=== PATIENT | female | born 1950 | race Caucasian/White ===

== ENCOUNTER 2021-09-23 06:12 | Day surgery (SDC) | payer MEDICARE ==
[2021-09-23] MEDS ORDERED: Lactated Ringers 1,000 ML IV SCH ×2 (07:00)
[2021-09-23] MEDS ORDERED: DIPRIVAN 200 MG/20 ML IV ONE ×2 (07:29→07:38)
[2021-09-23 08:18] VITALS: O2SAT 98
--- NOTE | 2021-09-23 08:33 | OP ---
SURGERY DATE/TIME: 09/23/2021 4650 PREOPERATIVE DIAGNOSIS: Screening exam. POSTOPERATIVE DIAGNOSIS: Normal colon. PROCEDURE: Colonoscopy. SURGEON: Dr. Molina. ANESTHESIA: MAC. Medications given by anesthesia department. HISTORY: The patient is a 71-year-old white female who presents now for her first screening colonoscopy. The patient reports that there have been no problems and she is here for screening. She has never had one previously. The patient was appraised of the risks of the procedure including the risk of perforation, phlebitis, untoward reaction to medication, bleeding and missed lesions. The patient verbalized her understanding and desired to have the procedure performed. DESCRIPTION OF PROCEDURE: The patient was given the medications by the anesthesia department. She had continuous pulse oximetry, ECG monitoring, intermittent blood pressure monitoring and tidal CO2 monitoring during the examination. She was placed in the left lateral decubitus position. A digital rectal examination was performed and revealed normal anal sphincter tone and no masses. The flexible Olympus pediatric colonoscope was used to intubate the rectum. A view of the colon was developed sequentially to the cecum. Upon insertion and withdrawal, including a retroflex view in the rectum, no mucosal lesions were encountered. The scope was removed from the patient who tolerated the procedure well and was sent back to OP recovery in good condition. The prep was noted to be fair to good.
[2021-09-23 08:58] VITALS: BP 144/84; PULSE 76
== END 2021-09-23 08:43 | disposition home or self-care (01) ==
LOC: SDC 06:12
PROVIDERS: ATTEND Family Medicine
DX: Z12.11 Encounter for screening for malignant neoplasm of colon (principal); E11.9 Type 2 diabetes mellitus without complications; Z79.899 Other long term (current) drug therapy
CPT/HCPCS: 82947; 99100; J2704

== ENCOUNTER 2023-07-03 05:35 | Day surgery (SDC) | payer MEDICARE ==
[2023-07-03] MEDS ORDERED: BETADINE 5% OPHTHALMIC 30 ML OP ONE (06:00)
[2023-07-03] MEDS ORDERED: cefUROXime sodium 0.005 GM in Sodium Chloride Flush 30 ML*** 0.5 ML IJ ONE (06:00)
[2023-07-03] MEDS ORDERED: TETRACAINE 0.5% STERI-UNIT SOL OP ONE ×2 (06:00)
[2023-07-03] MEDS ORDERED: Ak-Dilate OPHTHALMIC*** 1.065 ML, Cyclogyl 1% OPHTH SOL 1.065 ML, GATIFLOXACIN 0.5% OPH... OP ONE ×4 (06:00)
[2023-07-03] MEDS ORDERED: Lactated Ringers 1,000 ML IV SCH (06:00)
[2023-07-03] MEDS ORDERED: NON-FORMULARY ITEM OP ONE (06:00)
[2023-07-03] MEDS ORDERED: Lactated Ringers 1,000 ML IV ONE (06:12)
[2023-07-03 06:52] VITALS: RESP 18
[2023-07-03] MEDS ORDERED: Zofran 4 MG/2 ML VIAL IV PRN (07:30)
[2023-07-03] MEDS ORDERED: ACETAZOLAMIDE 250 MG TABLET PO ONE (07:30)
[2023-07-03] MEDS ORDERED: DIPRIVAN 200 MG/20 ML IV ONE ×2 (08:52→09:06)
[2023-07-03 09:17] VITALS: TEMP 97.7
[2023-07-03 09:23] VITALS: PULSE 85
[2023-07-03 09:29] VITALS: BP 130/72; O2SAT 95
[2023-07-03] MEDS ORDERED: Epinephrine Preservative Free 1 MG/ML ONE (14:52)
== END 2023-07-03 09:34 | disposition home or self-care (01) ==
LOC: SDC 05:35
PROVIDERS: ATTEND Ophthalmology
DX: H25.812 Combined forms of age-related cataract, left eye (principal); E11.9 Type 2 diabetes mellitus without complications
CPT/HCPCS: 82947; 99100; C1780; J0171; J2704; A9270-GY

== ENCOUNTER 2023-08-07 05:31 | Day surgery (SDC) | payer MEDICARE ==
[2023-08-07] MEDS ORDERED: Epinephrine Preservative Free 1 MG/ML IJ ONE (05:32)
[2023-08-07] MEDS ORDERED: BETADINE 5% OPHTHALMIC 30 ML OP ONE (06:00)
[2023-08-07] MEDS ORDERED: cefUROXime sodium 0.005 GM in Sodium Chloride Flush 30 ML*** 0.5 ML IJ ONE (06:00)
[2023-08-07] MEDS ORDERED: Ak-Dilate OPHTHALMIC*** 1.065 ML, Cyclogyl 1% OPHTH SOL 1.065 ML, GATIFLOXACIN 0.5% OPH... OP ONE ×4 (06:00)
[2023-08-07] MEDS ORDERED: Lactated Ringers 1,000 ML IV SCH (06:00)
[2023-08-07] MEDS ORDERED: NON-FORMULARY ITEM OP ONE (06:00)
[2023-08-07] MEDS ORDERED: TETRACAINE 0.5% STERI-UNIT SOL OP ONE ×2 (06:00)
[2023-08-07 06:45] VITALS: RESP 18
[2023-08-07] MEDS ORDERED: Lactated Ringers 1,000 ML IV ONE (06:50)
[2023-08-07] MEDS ORDERED: ACETAZOLAMIDE 250 MG TABLET PO ONE (09:00)
[2023-08-07] MEDS ORDERED: Zofran 4 MG/2 ML VIAL IV PRN (09:00)
[2023-08-07] MEDS ORDERED: DIPRIVAN 200 MG/20 ML IV ONE ×2 (09:15→09:29)
[2023-08-07] MEDS ORDERED: Xylocaine-Mpf 2% 5 Ml Vial ONE (09:23)
[2023-08-07 09:47] VITALS: TEMP 97.7
[2023-08-07 09:57] VITALS: BP 148/75; PULSE 83; O2SAT 97
== END 2023-08-07 10:02 | disposition home or self-care (01) ==
LOC: SDC 05:31
PROVIDERS: ATTEND Ophthalmology
DX: H25.811 Combined forms of age-related cataract, right eye (principal); E11.9 Type 2 diabetes mellitus without complications
CPT/HCPCS: 82947; J0171; J2704; A9270-GY